=== PATIENT | female | born 1995 | race Two or more races ===

== ENCOUNTER 2019-07-04 08:42 | Day surgery (SDC) | payer OTHER ==
[~2019-07-04] VITALS: Ht 162.6 cm; Wt 72.5 kg
[~2019-07-04 08:42] MED LIST: HYDROmorphone 2 MG/ML VIAL IV PRN; IV RINGERS,LACTATED 1000ML 1,000 ML IV SCH; MORPHINE SULFATE 2 MG/ML VIAL. IV PRN; ONDANSETRON PF 4 MG/2 ML VIAL. IV PRN; PROCHLORPERAZINE 10 MG/2 ML VIAL. IV PRN; fentaNYL PF VIAL 100 MCG/2 ML VIAL IV PRN
[2019-07-04] MEDS ORDERED: LIDOCAINE 2%/EPI 1:100,000 20 ML VIAL. ONE (11:19)
[2019-07-04] MEDS ORDERED: PROPOFOL 20 ML IV ONE (11:21)
[2019-07-04] MEDS ORDERED: FAMOTIDINE 20 MG/2 ML VIAL ONE (11:21)
[2019-07-04] MEDS ORDERED: KETOROLAC 30 MG/ML VIAL. ONE (11:21)
[2019-07-04] MEDS ORDERED: LIDOCAINE 2% PF 5 ML VIAL. ONE (11:21)
[2019-07-04] MEDS ORDERED: ONDANSETRON PF 4 MG/2 ML VIAL. ONE (11:22)
[2019-07-04] MEDS ORDERED: MIDAZOLAM HCL/PF 2 MG/2 ML VIAL. ONE (11:22)
[2019-07-04] MEDS ORDERED: DEXAMETHASONE SOD PHOS 4 MG/ML VIAL ONE ×2 (11:49)
[2019-07-04] MEDS ORDERED: diphenhydrAMINE 50 MG/ML VIAL ONE (11:50)
[2019-07-04] MEDS ORDERED: LIDOCAINE 1%/EPI 1:100,000 20 ML VIAL. ONE (12:01)
--- NOTE | 2019-07-04 12:16 | PDOC ---
BRIEF OPERATIVE NOTE Date: Jul 04, 2019 Pre-Op Diagnosis Cervical dysplasia Post-Op Diagnosis Same Procedure Performed Cervical Cone Biopsy Surgeon Dr. Segal Anesthesia Type: General Blood Loss 10 ml Specimens Obtained cervical biopsy Findings cervical dysplasia Complications none Operative Note see dictation HOA SEGAL Jr, MD Jul 04, 2019 12:16
--- NOTE | 2019-07-04 12:17 | DISCH ---
DISCHARGE INSTRUCTIONS Condition on Discharge Condition on Discharge: Stable Activity After Discharge Activity Instructions for Disc: Activity as tolerated Lifting Instructions after Dis: No heavy lifting Driving Instructions after Dis: Do not drive today Diet after Discharge Diet after Discharge: Regular Contacting the DRYeimy after DC Call your doctor for: Concerns you may have Follow-Up Follow up with: Dr. Segal in 2 wks HOA SEGAL Jr, MD Jul 04, 2019 12:17
[2019-07-04] MEDS ORDERED: SEVOFLURANE 31 TO 60 MINUTES. IH ONE (12:18)
--- NOTE | 2019-07-04 12:30 | OP ---
DATE OF SURGERY: 07/04/2019 PREOPERATIVE DIAGNOSIS: Cervical dysplasia. POSTOPERATIVE DIAGNOSIS: Cervical dysplasia. PROCEDURE: Cervical cone biopsy. SURGEON: Hoa Segal MD ANESTHESIA: GETA. ESTIMATED BLOOD LOSS: Less than 10 mL. COMPLICATIONS: None. FINDINGS: Cervical dysplasia. SUMMARY: A 23-year-old with SHAMAR 1 on colposcopic biopsy and ECC, was counseled on the need for cervical cone biopsy. She was counseled on the risks, benefits and expectations and voiced clear understanding to proceed. DESCRIPTION OF PROCEDURE: The patient was taken to surgery suite and placed in dorsal lithotomy position. She was prepped with Betadine solution and draped in a sterile fashion. After adequate anesthesia, weighted speculum and curved Tim placed vaginally. Anterior lip of the cervix grasped with single tooth tenaculum. A 1% lidocaine with epinephrine was injected in a circumferential manner. A 2-0 Vicryl sutures were placed at 3 o'clock and 9 o'clock position to better stabilize the cervix. Cold knife cone biopsy was then performed removing anterior and posterior lip of the cervix. The remaining cervix was cauterized with ball cautery for good hemostasis. The single-tooth tenaculum, weighted speculum and curved Tim all removed. The patient was taken to recovery room in stable condition. Sponge and needle count correct x 3. HOA SEGAL MD DR: ZAK/cherie JOB#: [id number] / [id number]
[2019-07-04] MEDS ORDERED: OXYC1TAB15 PO (12:44)
[2019-07-04] MEDS ORDERED: oxyCODONE/APAP 5/325 1 TAB TABLET PO ONE ×2 (13:15)
[2019-07-04 13:20] VITALS: BP 119/70
--- NOTE | 2019-07-05 20:06 | PATHOLOGY ---
[facility] Accession Number: [id number] . 01 Material submitted: . cervix - CERVICAL CONE BIOPSY STITCH AT 12:00. Modifiers: 12:00 . 01 Clinical history: . Cervical dysplasia . 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 - Ectocervical, endocervical, and deep margins negative for dysplasia. - Mild chronic cervicitis with focal squamous metaplasia. (JPM:rebecca; 07/05/2019) MBR 07/05/2019 1610 Local . 02 Comment: There is focal mild dysplasia with cellular changes of HPV effect within the transition zone. There is no high-grade dysplasia or evidence of malignancy. (JPM:rebecca; 07/05/2019) . 02 Electronically signed: . Jeovany Rodriguez MD, Pathologist NPI- [id number] . 01 Gross description: . The specimen is received in formalin, labeled "Kiesha Caldwell, cervical cone biopsy stitch at 12:00" and consists of an oriented cervical cone measuring 2.0 x 1.1 x 1.0 cm. A suture is present designated 12:00. There is a 1.0 cm slitlike cervical os surrounded by glistening armando pink ectocervical mucosa. The ectocervical rim and deep margins inked black, and the proximal endocervical margin is inked blue. The cone is radially sectioned and entirely submitted as follows: . A1: 12-3:00 A2: 3-6:00 A3: 6-9:00 A4: 9-12:00 (REGY; 07/04/2019) SYU/SYU 07/05/2019 1608 Local . 02 Pathologist provided ICD-10: N87.0, N72 . 02 CPT . 101658 Specimen Comment: A courtesy copy of this report has been sent to Specimen Comment: [phone], . Specimen Comment: Report sent to / DR MONREAL Performed at: 01 [facility] [address], [place], [place] [id number] MD Duke Aparicio MD Phone: [phone] Performed at: 02 [facility] [address] [place], [place] [id number] MD Jeovany Rodriguez MD Phone: [phone]
== END 2019-07-04 13:40 | disposition home or self-care (01) ==
LOC: SURG 08:42
PROVIDERS: ATTEND Obstetrics & Gynecology
DX: N87.0 Mild cervical dysplasia (principal); N72 Inflammatory disease of cervix uteri; Z72.89 Other problems related to lifestyle
CPT/HCPCS: 57520; 81025; A7015; J0690; J1100; J1200; J1885; J2001; J2250; J2405; J2704; J3490

== ENCOUNTER → 2019-08-13 | Outpatient (CLI) | payer OTHER ==
[~2019-08-13] MED LIST changes: -HYDROmorphone 2 MG/ML VIAL IV PRN; -IV RINGERS,LACTATED 1000ML 1,000 ML IV SCH; -MORPHINE SULFATE 2 MG/ML VIAL. IV PRN; -ONDANSETRON PF 4 MG/2 ML VIAL. IV PRN; +OXYC1TAB15 PO; -PROCHLORPERAZINE 10 MG/2 ML VIAL. IV PRN; -fentaNYL PF VIAL 100 MCG/2 ML VIAL IV PRN
[2019-08-13 10:48] LABS: BASO % 0 % (0-3); EOS # 0.3 x10^3/uL (0.0-0.7); EOS % 4 % (0-3); HEMATOCRIT 40.7 % (36.0-47.0); HEMOGLOBIN 13.7 g/dL (12.0-15.5); LYMPH # 1.3 x10^3/uL (1.0-4.8); LYMPH % 18 % (24-48); MEAN CORPUSCULAR HEMOGLOBIN 28 pg (25-35); MEAN CORPUSCULAR HGB CONC 34 g/dL (31-37); MEAN CORPUSCULAR VOLUME 83 fL (79-100); MONO # 0.5 x10^3/uL (0.0-1.1); MONO % 7 % (0-9); NEUT # 5.4 x10^3/uL (1.8-7.7); NEUT % 71 % (31-73); PLATELET COUNT 154 x10^3/uL (140-400); RED CELL DISTRIBUTION WIDTH 13.5 % (11.5-14.5); WHITE BLOOD COUNT 7.5 x10^3/uL (4.0-11.0)
== END | disposition home or self-care (01) ==
LOC: LAB 10:16
PROVIDERS: ATTEND Obstetrics & Gynecology
DX: Z32.01 Encounter for pregnancy test, result positive (principal)
CPT/HCPCS: 81220; 84702; 85025; 86592; 86703; 86762; 86850; 86900; 86901; 87340

== ENCOUNTER → 2020-05-13 | Outpatient (CLI) | payer OTHER | END | disposition home or self-care (01) | LOC: LAB 11:52 | PROVIDERS: ATTEND Obstetrics & Gynecology | DX: N91.1 Secondary amenorrhea (principal) | CPT/HCPCS: 36415; 84702 ==